=== PATIENT | female | born 1935 | race Caucasian/White ===

== ENCOUNTER 2023-05-13 16:38 | Emergency (ER) | payer MEDICARE, OTHER, SELFPAY ==
[2023-05-13 16:44] VITALS: BP 178/67; PULSE 88; RESP 18; TEMP 36.9; O2SAT 98
--- NOTE | 2023-05-13 17:02 | ED_ITS ---
HPI - Eye Problem General Chief complaint: Eye Problems Stated complaint: Direct Referral Eyelid Edema Bilateral Time Seen by Provider: 05/13/23 16:52 Source: patient Mode of arrival: walk-in Limitations: no limitations History of Present Illness HPI Narrative: This very pleasant patient is here with her daughter for evaluation of double vision. 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 He said this morning she noticed that when she was looking at the light on her ceiling there was to light since that on. She is not having a terrible headache. She has not had any recent falls trauma or injury. She has not had previous strokes. She is known to have rheumatoid arthritis and is under the care of a ophthalmology surgical technician, currently taking methotrexate and Plaquenil. Additionally she is taking warfarin because a number years ago she had DVT in her right leg. She never had pulmonary embolism. She did not notice any trouble swallowing and trouble speaking loss of vision scotomata's or floaters today. She was told to go to the emergency room because of the 4th nerve palsy. Related Data Allergies Allergy/AdvReac Type Severity Reaction Status Date / Time amoxicillin [From Augmentin] AdvReac Intermediate Verified 05/13/23 16:44 clavulanic acid AdvReac Intermediate Verified 05/13/23 16:44 [From Augmentin] Exam Narrative Exam Narrative: This a very pleasant 88-year-old here with I believe her daughter or other family member. They are very pleasant she appears no distress. She is awake alert [place] x 3 excellent historian she does not have any headache no neck pain. She does not have any diplopia dysarthria dysphagia. She is moving about comfortably and has no lateralizing neurological symptoms. Neurological exam cranial nerves were checked 3 times by myself once I demonstrated to the family members that all cranial nerves are completely normal. Her neck is soft and supple. She has no carotid bruits. Her pulse is regular. Movement of the trunk torso and extremities is normal with no other neurological findings. Lungs show no respiratory distress. Heart sounds are normal. Her skin is warm and dry mucous membranes are moist and pink. She is on Coumadin so I will check the INR level. I also did a CT without contrast with attention to the brainstem area. Constitutional Vital Signs, click to edit/add: Last Vital Signs Temp 98.5 F 05/13/23 16:44 Pulse 88 05/13/23 16:44 Resp 18 05/13/23 16:44 BP 178/67 H 05/13/23 16:44 Pulse Ox 98 05/13/23 16:44 O2 Del Method Room Air 05/13/23 16:44 Course Vital Signs Vital signs: Vital Signs Temperature 98.5 F 05/13/23 16:44 Pulse Rate 88 05/13/23 16:44 Respiratory Rate 18 05/13/23 16:44 Blood Pressure 178/67 H 05/13/23 16:44 Pulse Oximetry 98 05/13/23 16:44 Oxygen Delivery Method Room Air 05/13/23 16:44 Temperature 98.5 F 05/13/23 16:44 Pulse Rate 88 05/13/23 16:44 Respiratory Rate 18 05/13/23 16:44 Blood Pressure 178/67 H 05/13/23 16:44 Pulse Oximetry 98 05/13/23 16:44 Oxygen Delivery Method Room Air 05/13/23 16:44 MDM - Eye Problem MDM Narrative Medical decision making narrative: The daughter acknowledges that her eyes are moving completely normally with no deficit. I rechecked her after CAT scan and she still is asymptomatic and with no deficit. Her CT scan head was interpreted by the radiologist as negative. 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 Her glucose is normal. There are diagnostic considerations but I do not believe there is an emergency condition at this time. She advised to follow-up with her primary care doctor this week and if symptoms return or recur she will be referred to neurology. Some autoimmune diseases may be the cause of this condition. It is in fact intermittent as her examination now is normal. Discharge Plan Discharge Chief Complaint: Eye Problems Clinical Impression: H/O diplopia Patient Disposition: Home, Self-Care Time of Disposition Decision: 18:21 Additional Instructions: She may need neurology referral from her family doctor if she has any recurring symptoms. Stand Alone Forms: Portal Instructions Referrals: PATO STRONG [Primary Care Provider] - 1 week
--- NOTE | 2023-05-13 17:03 | CT_ITS ---
[address] [address] Patient Name: LUIS TIJERINA MRN: [id number] date: 1935 Sex: F Assigned Patient Location: ER Current Patient Location: ER Accession/Order Number: [id number] Exam Date: 05/13/2023 17:19 Report Date: 05/13/2023 17:58 At the request of: LINDA CHAMORRO Procedure: CT head/brain wo con EXAMINATION: CT head/brain wo con, 05/13/2023 5:19 PM EST HISTORY: 4th nerve palsy. COMPARISON: None. TECHNIQUE: CT scan of the head was performed without IV contrast. CT dose reduction technique was used, including Automated Exposure Control. FINDINGS: BRAIN PARENCHYMA/CSF SPACES: Moderately enlarged ventricles and sulci consistent with atrophy. There is moderate prominence of the frontal extra-axial spaces also due to atrophy. There is no hemorrhage, mass effect or midline shift. Atherosclerotic calcification of the vertebral and carotid arteries bilaterally. Mild low-attenuation of the white matter compatible with chronic small vessel ischemia. PARANASAL SINUSES: Clear. SKULL BASE AND CALVARIUM: Normal. EXTRACRANIAL SOFT TISSUES: There is likely age-related bilateral scleral calcifications. CT/CT head/brain wo con IMPRESSION: 1. No acute intracranial abnormality. 2. Moderate atrophy. 3. Atherosclerotic calcification and chronic small vessel ischemia. Electronically authenticated by: IVELISSE BOYCE Date: 05/13/2023 17:58
[2023-05-13 17:39] LABS: BUN Creatinine Ratio 21.6; Calcium 9.2 mg/dL (8.5-10.1); Carbon Dioxide 30.2 mmol/L (21.0-32.0); Chloride 105 mmol/L (98-107); Estimated GFR (African America 49 (>=60); Estimated GFR (Non-African Ame 40 (>=60); Glucose 85 mg/dL (74-106); Potassium 3.2 mmol/L (3.5-5.1); Sodium 141 mmol/L (136-145)
[2023-05-13 17:43] LABS: INR 2.29; Prothrombin Time 23.2 sec (9.0-11.6)
== END 2023-05-13 18:37 | disposition home or self-care (01) ==
PROVIDERS: Emergency Provider Emergency Medicine Emergency Medical Services; PCP Internal Medicine
DX: H53.2 Diplopia (principal); M06.9 Rheumatoid arthritis, unspecified; Z79.899 Other long term (current) drug therapy; Z79.01 Long term (current) use of anticoagulants; Z86.718 Personal history of other venous thrombosis and embolism
CPT/HCPCS: 36415; 70450; 80048; 85610; 99284